=== PATIENT | female | born 1945 | race Caucasian/White ===

== ENCOUNTER 2020-08-16 14:08 | Emergency (ER) | payer MEDICARE, OTHER ==
[2020-08-16] MEDS ORDERED: Ondansetron ODT 4 MG TAB ONE (14:33)
[2020-08-16] MEDS ORDERED: Iopamidol-370 76% 500 ML 1 ML ONE (15:00)
[2020-08-16 16:01] LABS: #Lymphocytes 1.4 thou/uL (1.20-3.40); #Monocytes 0.3 thou/uL (0.11-0.59); #Neutrophils 9.8 thou/uL (1.40-6.50); %Basophils 0.2 % (0.0-1.0); %Eosinophils 0.1 % (0.0-10.0); %Lymphocytes 11.9 % (21.0-51.0); %Monocytes 2.7 % (0.0-10.0); %Neutrophils 85.2 % (42.0-75.0); Mean Corpuscular HGB CONC 32.9 g/dL (32.0-36.0); Mean Corpuscular Hemoglobin 31.7 pg (27.0-31.0); Mean Corpuscular Volume 96.4 fL (78.0-98.0); Mean Platelet Volume 8.8 fL (7.4-10.4); Platelet Count 250 thou/uL (130-400); RBC Distribution Width 14.1 % (11.5-14.5); Red Blood Cell (RBC) Count 4.41 mill/uL (4.20-5.40); White Blood Cell (WBC) Count 11.5 thou/uL (4.8-10.8)
[2020-08-16 16:11] LABS: Bacteria/HPF None Seen HPF (None Seen); Bilirubin Negative (Negative); Blood, Urine Negative (Negative); Clarity Turbid (Clear); Glucose, Urine (Dipstick) Normal (Negative); Ketone, Urine 20 mg/dL (Negative); Leukocyte Negative Leu/uL (Negative); Nitrite Negative (Negative); Protein, Urine (Dipstick) 50 mg/dL (Neg-Trace); RBC/HPF 0-3 HPF (0-3); Squamous Epithelial 0-3 HPF (0-3); Urobilinogen Normal mg/dL (Less than 2); WBC/HPF 0-3 HPF (0-3)
[2020-08-16 16:25] LABS: ALT (SGPT) 25 U/L (8-55); AST (SGOT) 31 U/L (5-34); Albumin 4.1 g/dL (3.4-4.8); Alkaline Phosphatase 118 U/L (40-110); Anion Gap 18 mmol/L (10-20); BUN (Urea Nitrogen) 29 mg/dL (9.8-20.1); Bilirubin, Total 0.4 mg/dL (0.2-1.2); Calc. Creatinine Clearance 0 mL/min (70-130); Carbon Dioxide 33 mmol/L (23-31); Chloride 100 mmol/L (98-107); Globulin 2.8 g/dL (2.4-3.5); Glucose 113 mg/dL (83-110); Lipase 52 U/L (8-78); Potassium 3.4 mmol/L (3.5-5.1); Protein, Total 6.9 g/dL (5.8-8.1); Sodium 148 mmol/L (136-145)
[2020-08-16 16:45] LABS: CKMB 1.4 ng/mL (0-6.6)
[2020-08-16] MEDS ORDERED: Aspirin Chewable 81 MG TAB ONE (18:09)
[2020-08-16 18:17] LABS: Troponin I 0.075 ng/mL (< 0.028)
[2020-08-16 19:23] LABS: Lactic Acid 1.8 mmol/L (0.5-2.2)
== END 2020-08-16 19:12 ==
LOC: ERS 14:08
DX: R10.9 Unspecified abdominal pain (principal); R11.2 Nausea with vomiting, unspecified; Z79.82 Long term (current) use of aspirin; Z79.899 Other long term (current) drug therapy
CPT/HCPCS: 36415; 74177; 80053; 81003; 81015; 82553; 83605; 83690; 84484; 85025; 87086; 93005; 94760; Q0162; Q9967

== ENCOUNTER 2021-11-19 20:21 | Inpatient (IN) | payer OTHER ==
[2021-11-19] MEDS ORDERED: Nitroglycerin 2% Ointment 1 INCH/1 GM Packet ONE (20:56)
[2021-11-19 22:28] LABS: ALT (SGPT) 19 U/L (8-55); AST (SGOT) 48 U/L (5-34); Albumin 3.8 g/dL (3.4-4.8); Alkaline Phosphatase 89 U/L (40-110); Anion Gap 17 mmol/L (10-20); BUN (Urea Nitrogen) 40 mg/dL (9.8-20.1); Bilirubin, Total 0.2 mg/dL (0.2-1.2); Calc. Creatinine Clearance 0 mL/min (70-130); Calcium 11.1 mg/dL (7.8-10.44); Carbon Dioxide 23 mmol/L (23-31); Chloride 107 mmol/L (98-107); Estimated GFR 35; Globulin 2.7 g/dL (2.4-3.5); Glucose 89 mg/dL (83-110); Protein, Total 6.5 g/dL (5.8-8.1); Sodium 142 mmol/L (136-145)
[2021-11-19 22:37] LABS: #Eosinphils 0.2 thou/uL (0.0-0.7); #Lymphocytes 1.5 thou/uL (1.20-3.40); #Monocytes 0.5 thou/uL (0.11-0.59); #Neutrophils 6.1 thou/uL (1.40-6.50); %Basophils 0.4 % (0.0-1.0); %Eosinophils 2.6 % (0.0-10.0); %Lymphocytes 18.4 % (21.0-51.0); %Monocytes 5.5 % (0.0-10.0); %Neutrophils 73.2 % (42.0-75.0); Hemoglobin 13.1 g/dL (12.0-16.0); Mean Corpuscular HGB CONC 33.2 g/dL (32.0-36.0); Mean Corpuscular Hemoglobin 31.9 pg (27.0-31.0); Mean Corpuscular Volume 96.1 fL (78.0-98.0); Mean Platelet Volume 9.2 fL (7.4-10.4); Platelet Count 141 thou/uL (130-400); RBC Distribution Width 12.4 % (11.5-14.5); Red Blood Cell (RBC) Count 4.11 mill/uL (4.20-5.40); White Blood Cell (WBC) Count 8.4 thou/uL (4.8-10.8)
[2021-11-19 23:16] LABS: CKMB 2.8 ng/mL (0-6.6)
[2021-11-19] MEDS ORDERED: Enoxaparin Sodium 80 MG/0.8 ML SYRINGE ONE (23:25)
[2021-11-19] MEDS ORDERED: Aspirin Chewable 81 MG TAB ONE (23:25)
[2021-11-20] MEDS ORDERED: Ondansetron PF 4 MG/2 ML Vial ONE (00:16)
[2021-11-20] MEDS ORDERED: hydrALAZINE 20 MG/ML VIAL ONE (00:26)
[2021-11-20] MEDS ORDERED: Ondansetron PF 4 MG/2 ML Vial IVP PRN (00:37)
[2021-11-20] MEDS ORDERED: Acetaminophen 325 MG TAB PO PRN (00:37)
[2021-11-20] MEDS ORDERED: Dextrose 5% in Water 1,000 ML IV PRN (00:39)
[2021-11-20] MEDS ORDERED: Dextrose 50% Abboject 50 ML SYRINGE SLOW IVP PRN (00:39)
[2021-11-20] MEDS ORDERED: HumaLOG 300 UNITS/3 ML VIAL SC PRN ×2 (00:39)
[2021-11-20] MEDS ORDERED: hydrALAZINE 20 MG/ML VIAL SLOW IVP PRN (00:40)
[2021-11-20] MEDS ORDERED: Sodium Chloride 0.9% 1,000 ML IV SCH ×3 (01:15→14:15)
[2021-11-20] MEDS ORDERED: Nitroglycerin 0.4 MG TAB (25 Tab Bottle) SL PRN ×2 (01:19→14:08)
[2021-11-20 02:50] LABS: Troponin I 1.738 ng/mL (< 0.028)
[2021-11-20] MEDS ORDERED: traMADol HCl 50 MG TAB PO PRN (04:24)
[2021-11-20 04:57] LABS: #Eosinphils 0.2 thou/uL (0.0-0.7); #Lymphocytes 1.4 thou/uL (1.20-3.40); #Monocytes 0.4 thou/uL (0.11-0.59); #Neutrophils 5.9 thou/uL (1.40-6.50); %Basophils 0.2 % (0.0-1.0); %Eosinophils 2.2 % (0.0-10.0); %Lymphocytes 17.5 % (21.0-51.0); %Neutrophils 75.2 % (42.0-75.0); Hemoglobin 12.8 g/dL (12.0-16.0); Mean Corpuscular HGB CONC 32.5 g/dL (32.0-36.0); Mean Corpuscular Hemoglobin 31.2 pg (27.0-31.0); Mean Corpuscular Volume 96.1 fL (78.0-98.0); Mean Platelet Volume 9.8 fL (7.4-10.4); Platelet Count 156 thou/uL (130-400); RBC Distribution Width 12.6 % (11.5-14.5); White Blood Cell (WBC) Count 7.8 thou/uL (4.8-10.8)
[2021-11-20 05:05] LABS: Anion Gap 15 mmol/L (10-20); BUN (Urea Nitrogen) 39 mg/dL (9.8-20.1); Calc. Creatinine Clearance 0 mL/min (70-130); Calcium 10.7 mg/dL (7.8-10.44); Carbon Dioxide 23 mmol/L (23-31); Chloride 109 mmol/L (98-107); Cholesterol 138 mg/dl (< 200 Desired); Estimated GFR 42; Glucose 89 mg/dL (83-110); HDL Cholesterol 46 mg/dL (>60 Neg Risk); LDL Cholesterol, Calculated 71 mg/dL; Potassium 3.8 mmol/L (3.5-5.1); Sodium 143 mmol/L (136-145); Triglycerides 107 mg/dL (Less than 150)
[2021-11-20 05:13] LABS: Troponin I 2.024 ng/mL (< 0.028)
[2021-11-20 05:36] VITALS: BMI 27.3
[2021-11-20 05:39] LABS: Bacteria/HPF None Seen HPF (None Seen); Bilirubin Negative (Negative); Blood, Urine Negative (Negative); Clarity Clear (Clear); Glucose, Urine (Dipstick) Normal (Negative); Ketone, Urine Negative (Negative); Leukocyte 250 Leu/uL (Negative); Nitrite Negative (Negative); Protein, Urine (Dipstick) Negative (Neg-Trace); RBC/HPF 0-3 HPF (0-3); Specific Gravity, Urine 1.012 (1.002-1.036); Squamous Epithelial 0-3 HPF (0-3); Urobilinogen Normal mg/dL (Less than 2)
[2021-11-20 05:40] LABS: Urine Culture Reflex Yes Yes
[2021-11-20] MEDS ORDERED: Iopamidol 370 76% 100 ML VIAL ONE (09:09)
[2021-11-20] MEDS: Gabapentin 300 MG CAP PO SCH ×3 (09:26→21:06)
[2021-11-20] MEDS: Aspirin 81 mg Enteric Coated Tablet PO SCH (09:26)
[2021-11-20] MEDS ORDERED: Communication Order-Pharmacy FS SCH (09:30)
[2021-11-20] MEDS ORDERED: Lidocaine 1% PF 5 ML VIAL ONE (11:39)
[2021-11-20] MEDS ORDERED: Acetaminophen/Codeine 30-300mg Tablet PO PRN ×2 (11:43→14:08)
[2021-11-20] MEDS ORDERED: Polyethylene Glycol 3350 17 GM Packet PO SCH (12:00)
[2021-11-20] MEDS ORDERED: Heparin 10,000 UNITS/ 10 ML VIAL ONE (12:08)
[2021-11-20] MEDS ORDERED: Verapamil 5 MG/2 ML VIAL ONE (12:08)
[2021-11-20] MEDS ORDERED: Nitroglycerin 100MG/250ML BOT 250 ML ONE (12:08)
[2021-11-20 12:20] LABS: Anion Gap 16 mmol/L (10-20); BUN (Urea Nitrogen) 33 mg/dL (9.8-20.1); Calc. Creatinine Clearance 51 mL/min (70-130); Calcium 10.1 mg/dL (7.8-10.44); Carbon Dioxide 18 mmol/L (23-31); Chloride 111 mmol/L (98-107); Estimated GFR 46; Glucose 80 mg/dL (83-110); Potassium 4.3 mmol/L (3.5-5.1); Sodium 141 mmol/L (136-145)
[2021-11-20] MEDS ORDERED: Fentanyl 100 MCG/2 ML VIAL ONE (12:56)
[2021-11-20] MEDS ORDERED: Midazolam HCl 2 mg/2 ml Vial ONE (12:56)
[2021-11-20] MEDS ORDERED: Sodium Chloride 0.9% 200 ML IV PRN (14:08)
[2021-11-21 05:08] LABS: Anion Gap 15 mmol/L (10-20); BUN (Urea Nitrogen) 30 mg/dL (9.8-20.1); Calc. Creatinine Clearance 52 mL/min (70-130); Calcium 9.3 mg/dL (7.8-10.44); Carbon Dioxide 19 mmol/L (23-31); Chloride 113 mmol/L (98-107); Estimated GFR 47; Glucose 115 mg/dL (83-110); Potassium 4.1 mmol/L (3.5-5.1); Sodium 143 mmol/L (136-145)
[2021-11-21] MEDS: Aspirin 81 mg Enteric Coated Tablet PO SCH (09:02)
[2021-11-21] MEDS: Polyethylene Glycol 3350 17 GM Packet PO SCH (09:02)
[2021-11-21] MEDS: Gabapentin 300 MG CAP PO SCH ×3 (09:03→20:21)
[2021-11-21 18:24] LABS: #Eosinphils 0.1 thou/uL (0.0-0.7); #Lymphocytes 1.2 thou/uL (1.20-3.40); #Monocytes 0.3 thou/uL (0.11-0.59); #Neutrophils 4.3 thou/uL (1.40-6.50); %Lymphocytes 19.3 % (21.0-51.0); %Monocytes 5.7 % (0.0-10.0); %Neutrophils 72.9 % (42.0-75.0); Hemoglobin 11.3 g/dL (12.0-16.0); Mean Corpuscular HGB CONC 32.3 g/dL (32.0-36.0); Mean Corpuscular Hemoglobin 30.9 pg (27.0-31.0); Mean Corpuscular Volume 95.7 fL (78.0-98.0); Mean Platelet Volume 8.9 fL (7.4-10.4); Platelet Count 140 thou/uL (130-400); RBC Distribution Width 12.7 % (11.5-14.5); Red Blood Cell (RBC) Count 3.67 mill/uL (4.20-5.40); White Blood Cell (WBC) Count 5.9 thou/uL (4.8-10.8)
[2021-11-21] MEDS: Acetaminophen/Codeine 30-300mg Tablet PO PRN (20:21)
[2021-11-22] MEDS ORDERED: Bisacodyl 5 MG TAB PO PRN (03:25)
[2021-11-22] MEDS ORDERED: Senokot S 8.6-50 MG TAB PO PRN (03:25)
[2021-11-22] MEDS: Acetaminophen/Codeine 30-300mg Tablet PO PRN (04:11)
[2021-11-22 04:32] LABS: #Eosinphils 0.2 thou/uL (0.0-0.7); #Lymphocytes 1.2 thou/uL (1.20-3.40); #Monocytes 0.5 thou/uL (0.11-0.59); #Neutrophils 4.4 thou/uL (1.40-6.50); %Basophils 0.3 % (0.0-1.0); %Eosinophils 3.2 % (0.0-10.0); %Lymphocytes 18.5 % (21.0-51.0); %Monocytes 7.4 % (0.0-10.0); %Neutrophils 70.6 % (42.0-75.0); Hemoglobin 11.9 g/dL (12.0-16.0); Mean Corpuscular HGB CONC 32.9 g/dL (32.0-36.0); Mean Corpuscular Hemoglobin 31.6 pg (27.0-31.0); Mean Platelet Volume 8.8 fL (7.4-10.4); Platelet Count 132 thou/uL (130-400); RBC Distribution Width 12.8 % (11.5-14.5); Red Blood Cell (RBC) Count 3.75 mill/uL (4.20-5.40); White Blood Cell (WBC) Count 6.3 thou/uL (4.8-10.8)
[2021-11-22 04:53] LABS: Anion Gap 14 mmol/L (10-20); BUN (Urea Nitrogen) 28 mg/dL (9.8-20.1); Calc. Creatinine Clearance 57 mL/min (70-130); Calcium 8.9 mg/dL (7.8-10.44); Carbon Dioxide 21 mmol/L (23-31); Chloride 112 mmol/L (98-107); Estimated GFR 53; Glucose 91 mg/dL (83-110); Potassium 4.3 mmol/L (3.5-5.1); Sodium 143 mmol/L (136-145)
[2021-11-22] MEDS ORDERED: Cephalexin 250 MG CAP PO SCH (09:00)
[2021-11-22] MEDS ORDERED: Lisinopril 10 MG TAB PO SCH (09:00)
[2021-11-22] MEDS: Aspirin 81 mg Enteric Coated Tablet PO SCH (09:14)
[2021-11-22] MEDS: Polyethylene Glycol 3350 17 GM Packet PO SCH (09:14)
[2021-11-22] MEDS: Gabapentin 300 MG CAP PO SCH (09:20)
[2021-11-22 11:51] VITALS: BP 130/62; TEMP 98.6
== END 2021-11-22 12:50 | DRG 281 ==
LOC: ERS 20:21 → 2NO 11-20 00:19
PROVIDERS: ADMIT Family Medicine; ATTEND Family Medicine
PROC: 4A023N8 Measurement of Cardiac Sampling and Pressure, Bilateral, Percutaneous Approach (ICD-10-PCS; principal; 2021-11-20)
PROC: B2111ZZ Fluoroscopy of Multiple Coronary Arteries using Low Osmolar Contrast (ICD-10-PCS; 2021-11-20)
PROC: B2161ZZ Fluoroscopy of Right and Left Heart using Low Osmolar Contrast (ICD-10-PCS; 2021-11-20)
DX: I35.0 Nonrheumatic aortic (valve) stenosis (principal); I21.4 Non-ST elevation (NSTEMI) myocardial infarction; N17.9 Acute kidney failure, unspecified; N39.0 Urinary tract infection, site not specified; Z20.822 Contact with and (suspected) exposure to COVID-19; I77.1 Stricture of artery; I10 Essential (primary) hypertension; E78.5 Hyperlipidemia, unspecified; I48.91 Unspecified atrial fibrillation; I73.00 Raynaud's syndrome without gangrene; M81.0 Age-related osteoporosis without current pathological fracture; I16.0 Hypertensive urgency; E83.52 Hypercalcemia; G89.4 Chronic pain syndrome; Z90.49 Acquired absence of other specified parts of digestive tract; Z71.0 Person encountering health services to consult on behalf of another person; Z79.899 Other long term (current) drug therapy; Z79.82 Long term (current) use of aspirin; Z80.7 Family history of other malignant neoplasms of lymphoid, hematopoietic and related tissues; Z82.49 Family history of ischemic heart disease and other diseases of the circulatory system
CPT/HCPCS: 36415; 36416; 71045; 80048; 80053; 80061; 81001; 82553; 83036; 84484; 85025; 87077; 87086; 87186; 93005; 93306; 93456; 94760; 96372; 96374; 96375; 99152; C1751; C1769; C1894; J0360; J1644; J1650; J2250; J2405; J3010; J7050; Q9967; U0003; U0005

== ENCOUNTER 2021-12-25 12:33 | Inpatient (IN) | payer OTHER ==
[2021-12-25 13:40] LABS: Hemoglobin 12.8 g/dL (12.0-16.0); Mean Corpuscular HGB CONC 31.9 g/dL (32.0-36.0); Platelet Count 307 thou/uL (130-400); RBC Distribution Width 14.1 % (11.5-14.5); Red Blood Cell (RBC) Count 4.13 mill/uL (4.20-5.40); White Blood Cell (WBC) Count 23.6 thou/uL (4.8-10.8)
[2021-12-25 13:56] LABS: Band 30 % (5-11); Lymphocytes 5 % (21-51); MDiff Complete? YES; Metamyelocyte 4 % (0-0); Neutrophil 61 % (42-75); Ovalocytes SLIGHT = 2-5 cells (100X) (0-1/hpf); Platelet Morphology Comment Appears Adequate; Polychromasia MODERATE = 3-4 cells (100X) (0-2/hpf)
[2021-12-25 14:14] LABS: ALT (SGPT) 31 U/L (8-55); AST (SGOT) 38 U/L (5-34); Albumin 3.7 g/dL (3.4-4.8); Alkaline Phosphatase 89 U/L (40-110); Anion Gap 20 mmol/L (10-20); BUN (Urea Nitrogen) 36 mg/dL (9.8-20.1); Bilirubin, Total 0.5 mg/dL (0.2-1.2); Calc. Creatinine Clearance 0 mL/min (70-130); Calcium 10.6 mg/dL (7.8-10.44); Carbon Dioxide 17 mmol/L (23-31); Chloride 109 mmol/L (98-107); Estimated GFR 24; Globulin 2.4 g/dL (2.4-3.5); Glucose 110 mg/dL (83-110); Lipase 16 U/L (8-78); Potassium 4.8 mmol/L (3.5-5.1); Protein, Total 6.1 g/dL (5.8-8.1); Sodium 141 mmol/L (136-145)
[2021-12-25 14:27] LABS: CKMB 1.7 ng/mL (0-6.6)
[2021-12-25 15:05] LABS: Bilirubin Negative (Negative); Blood, Urine Trace (Negative); Clarity Turbid (Clear); Glucose, Urine (Dipstick) Normal (Negative); Ketone, Urine Trace mg/dL (Negative); Leukocyte 500 Leu/uL (Negative); Nitrite 1+ (Negative); Protein, Urine (Dipstick) 100 mg/dL (Neg-Trace); Specific Gravity, Urine 1.019 (1.002-1.036); Squamous Epithelial None Seen HPF (0-3); Urobilinogen Normal mg/dL (Less than 2); WBC/HPF Greater than 50 HPF (0-3); pH, Urine 7.5 (5.0-9.0)
[2021-12-25] MEDS ORDERED: Sodium Chloride 0.9% 100 ML ONE (15:10)
[2021-12-25] MEDS ORDERED: Piperacillin/Tazobactam 4.5 GM VIAL ONE (15:11)
[2021-12-25 15:15] LABS: Bacteria/HPF 4+ HPF (None Seen)
[2021-12-25 16:25] LABS: SARS-CoV-2 NAA Rapid Test Not Detected (NotDetected)
[2021-12-25 16:54] LABS: Lactic Acid 3.6 mmol/L (0.5-2.2)
[2021-12-25] MEDS ORDERED: Bupivacaine HCl 0.5%/Epinephrine 1:200,000/PF 30 ml Vial ONE (17:09)
[2021-12-25] MEDS ORDERED: PROPOFOL 200 MG/20 ML VIAL ONE (17:25)
[2021-12-25] MEDS ORDERED: Rocuronium Bromide 10 MG/ML (10ML VIAL) ONE (17:25)
[2021-12-25] MEDS ORDERED: Ondansetron PF 4 MG/2 ML Vial ONE (17:25)
[2021-12-25] MEDS ORDERED: Lidocaine 1% MPF 2 ML VIAL ONE (17:25)
[2021-12-25] MEDS ORDERED: Lidocaine 1% PF 5 ML VIAL ONE (17:31)
[2021-12-25] MEDS ORDERED: fentaNYL Citrate/PF 100 MCG/2 ML SYRINGE ONE (18:00)
[2021-12-25] MEDS ORDERED: Phenylephrine 10 MG/ML VIAL ONE (18:33)
[2021-12-25] MEDS ORDERED: Dextrose 50% Abboject 50 ML SYRINGE SLOW IVP PRN (19:51)
[2021-12-25] MEDS ORDERED: Morphine 4 MG/ML VIAL SLOW IVP PRN ×2 (19:51→20:15)
[2021-12-25] MEDS ORDERED: hydrALAZINE 20 MG/ML VIAL SLOW IVP PRN (19:51)
[2021-12-25] MEDS ORDERED: HumaLOG 300 UNITS/3 ML VIAL SC PRN (19:51)
[2021-12-25] MEDS ORDERED: Dextrose 5% in Water 1,000 ML IV PRN (19:51)
[2021-12-25] MEDS ORDERED: Morphine 2 MG/ML VIAL SLOW IVP PRN (19:51)
[2021-12-25] MEDS ORDERED: TETANUS, DIPHTHERIA TOX,ADULT (TDVAX) 0.5 ML VIAL IM ONE (19:51)
[2021-12-25] MEDS ORDERED: Ventilator Sedation Protocol 1 EACH FS SCH (20:00)
[2021-12-25] MEDS ORDERED: Midazolam HCl 2 mg/2 ml Vial SLOW IVP PRN (20:08)
[2021-12-25] MEDS ORDERED: Fentanyl BOLUS 250 ML IVPB PRN (20:15)
[2021-12-25] MEDS ORDERED: Propofol BOLUS 1,000 MG/100 ML VIAL IV PRN (20:15)
[2021-12-25 20:18] LABS: CO2 Tension 28.8 mmHg (35.0-45.0); Calcium, Ionized (arterial) 1.15 mmol/L (1.12-1.30); Carboxyhemoglobin (COHb) 0.4 gm% (0.0-3.0); Hemoglobin (Hb) 10.7 g/dL (12.0-16.0); O2 Tension (PaO2), arterial 156.5 mmHg (> 70.0); Potassium - ABG Lab 3.89 mmol/L (3.70-5.30); pH, Arterial 7.31 (7.35-7.45)
[2021-12-25 20:23] LABS: Puncture Site ALINE
[2021-12-25] MEDS ORDERED: Fentanyl CADD 100 ML ONE (20:39)
[2021-12-25] MEDS: Propofol 1,000 MG/100 ML VIAL IV PRN (20:44)
[2021-12-25] MEDS: Fentanyl CADD 100 ML IV SCH (20:44)
[2021-12-25] MEDS: Sodium Chloride 0.45% 1,000 ML IV SCH (20:51)
[2021-12-25 21:41] VITALS: BMI 27.5
[2021-12-25] MEDS: Enoxaparin Sodium 30 MG/0.3 ML SYRINGE SC SCH (21:49)
[2021-12-25] MEDS: Piperacillin/Tazobactam 3.375 GM in Sodium Chloride 0.9% 100 ML IVPB SCH (21:49)
[2021-12-25] MEDS: Albumin 25% 25 GM/100 ML BOT IVPB SCH (23:53)
[2021-12-26] MEDS ORDERED: Phenylephrine 0.25% Nasal Spray 15 ML BOT ONE (01:05)
[2021-12-26] MEDS: Phenylephrine 40 MG/NS 250 ML 40 MG in Premix Bag 1 BAG IVPB SCH ×3 (01:12→12:19)
[2021-12-26] MEDS: Sodium Chloride 0.45% 1,000 ML IV SCH ×2 (02:17→05:56)
[2021-12-26 04:29] LABS: INR-International Normal Ratio 1.5
[2021-12-26 04:30] LABS: PTT 51.3 sec (22.9-36.1)
[2021-12-26 04:50] LABS: ALT (SGPT) 84 U/L (8-55); AST (SGOT) 87 U/L (5-34); Alkaline Phosphatase 66 U/L (40-110); Anion Gap 12 mmol/L (10-20); BUN (Urea Nitrogen) 39 mg/dL (9.8-20.1); Bilirubin, Total 0.5 mg/dL (0.2-1.2); Calc. Creatinine Clearance 27 mL/min (70-130); Carbon Dioxide 17 mmol/L (23-31); Chloride 114 mmol/L (98-107); Estimated GFR 25; Globulin 1.8 g/dL (2.4-3.5); Glucose 113 mg/dL (83-110); Protein, Total 4.8 g/dL (5.8-8.1); Sodium 139 mmol/L (136-145)
[2021-12-26 05:02] LABS: Band 2 % (5-11); Hemoglobin 8.8 g/dL (12.0-16.0); Lymphocytes 4 % (21-51); MDiff Complete? YES; Mean Corpuscular HGB CONC 32.5 g/dL (32.0-36.0); Mean Corpuscular Hemoglobin 31.5 pg (27.0-31.0); Mean Corpuscular Volume 97.1 fL (78.0-98.0); Mean Platelet Volume 9.1 fL (7.4-10.4); Metamyelocyte 1 % (0-0); Monocytes 2 % (0-10); Neutrophil 90 % (42-75); Platelet Count 261 thou/uL (130-400); Platelet Morphology Comment Appears Adequate; RBC Distribution Width 14.1 % (11.5-14.5); RBC Morphology Normal; Red Blood Cell (RBC) Count 2.79 mill/uL (4.20-5.40); White Blood Cell (WBC) Count 23.1 thou/uL (4.8-10.8)
[2021-12-26] MEDS: Albumin 25% 25 GM/100 ML BOT IVPB SCH ×4 (05:37→23:50)
[2021-12-26] MEDS: Piperacillin/Tazobactam 3.375 GM in Sodium Chloride 0.9% 100 ML IVPB SCH ×3 (05:37→21:22)
[2021-12-26 07:10] LABS: Actual Bicarbonate (HCO3a) 16.4 mEq/L (22-28); Base Excess (BEa) -7.5 mEq/L (-2.0 to +3.0); CO2 Tension 27.3 mmHg (35.0-45.0); Calcium, Ionized (arterial) 1.08 mmol/L (1.12-1.30); Carboxyhemoglobin (COHb) 0.3 gm% (0.0-3.0); Hemoglobin (Hb) 8.4 g/dL (12.0-16.0); O2 Tension (PaO2), arterial 177.2 mmHg (> 70.0); Potassium - ABG Lab 3.73 mmol/L (3.70-5.30)
[2021-12-26 07:20] LABS: ALV-art Gradient 73.875 mmHg (0-20); Puncture Site Arterial Line
[2021-12-26] MEDS: Sodium Bicarbonate 70 MEQ in Sodium Chloride 0.45% 1,000 ML IV SCH ×2 (07:48→16:55)
[2021-12-26] MEDS: Pantoprazole 40 MG VIAL IVP SCH (08:31)
[2021-12-26] MEDS: Propofol 1,000 MG/100 ML VIAL IV PRN ×2 (09:23→17:32)
[2021-12-26 16:31] LABS: #Lymphocytes 0.7 thou/uL (1.20-3.40); #Monocytes 0.3 thou/uL (0.11-0.59); #Neutrophils 9.5 thou/uL (1.40-6.50); %Basophils 0.1 % (0.0-1.0); %Eosinophils 0.5 % (0.0-10.0); %Lymphocytes 6.5 % (21.0-51.0); %Monocytes 2.6 % (0.0-10.0); %Neutrophils 90.4 % (42.0-75.0); Hemoglobin 7.2 g/dL (12.0-16.0); Mean Corpuscular HGB CONC 34.1 g/dL (32.0-36.0); Mean Corpuscular Hemoglobin 32.8 pg (27.0-31.0); Mean Corpuscular Volume 96.2 fL (78.0-98.0); Mean Platelet Volume 8.7 fL (7.4-10.4); Platelet Count 161 thou/uL (130-400); RBC Distribution Width 14.6 % (11.5-14.5); Red Blood Cell (RBC) Count 2.21 mill/uL (4.20-5.40); White Blood Cell (WBC) Count 10.5 thou/uL (4.8-10.8)
[2021-12-26] MEDS ORDERED: Fentanyl CADD 100 ML ONE (17:30)
[2021-12-26] MEDS: Fentanyl CADD 100 ML IV SCH (17:32)
[2021-12-26] MEDS: Enoxaparin Sodium 30 MG/0.3 ML SYRINGE SC SCH (21:23)
[2021-12-27 00:29] LABS: #Eosinphils 0.1 thou/uL (0.0-0.7); #Monocytes 0.3 thou/uL (0.11-0.59); #Neutrophils 10.8 thou/uL (1.40-6.50); %Basophils 0.1 % (0.0-1.0); %Eosinophils 0.6 % (0.0-10.0); %Lymphocytes 7.9 % (21.0-51.0); %Monocytes 2.4 % (0.0-10.0); Hemoglobin 8.7 g/dL (12.0-16.0); Mean Corpuscular HGB CONC 32.8 g/dL (32.0-36.0); Mean Corpuscular Hemoglobin 30.9 pg (27.0-31.0); Mean Corpuscular Volume 94.3 fL (78.0-98.0); Mean Platelet Volume 9.3 fL (7.4-10.4); Platelet Count 153 thou/uL (130-400); RBC Distribution Width 14.3 % (11.5-14.5); Red Blood Cell (RBC) Count 2.81 mill/uL (4.20-5.40); White Blood Cell (WBC) Count 12.2 thou/uL (4.8-10.8)
[2021-12-27] MEDS: Phenylephrine 40 MG/NS 250 ML 40 MG in Premix Bag 1 BAG IVPB SCH ×2 (03:28→10:45)
[2021-12-27] MEDS: Propofol 1,000 MG/100 ML VIAL IV PRN ×3 (03:28→18:06)
[2021-12-27] MEDS: Sodium Bicarbonate 70 MEQ in Sodium Chloride 0.45% 1,000 ML IV SCH (03:45)
[2021-12-27 03:50] LABS: #Eosinphils 0.1 thou/uL (0.0-0.7); #Monocytes 0.3 thou/uL (0.11-0.59); #Neutrophils 10.6 thou/uL (1.40-6.50); %Eosinophils 0.8 % (0.0-10.0); %Lymphocytes 7.9 % (21.0-51.0); %Monocytes 2.5 % (0.0-10.0); %Neutrophils 88.8 % (42.0-75.0); Mean Corpuscular HGB CONC 33.7 g/dL (32.0-36.0); Mean Corpuscular Hemoglobin 31.4 pg (27.0-31.0); Mean Corpuscular Volume 93.2 fL (78.0-98.0); Platelet Count 151 thou/uL (130-400); RBC Distribution Width 14.5 % (11.5-14.5); Red Blood Cell (RBC) Count 2.86 mill/uL (4.20-5.40)
[2021-12-27 04:10] LABS: ALT (SGPT) 86 U/L (8-55); AST (SGOT) 66 U/L (5-34); Albumin 3.5 g/dL (3.4-4.8); Alkaline Phosphatase 55 U/L (40-110); Anion Gap 12 mmol/L (10-20); BUN (Urea Nitrogen) 28 mg/dL (9.8-20.1); Bilirubin, Total 0.8 mg/dL (0.2-1.2); Calc. Creatinine Clearance 40 mL/min (70-130); Carbon Dioxide 19 mmol/L (23-31); Chloride 113 mmol/L (98-107); Estimated GFR 41; Globulin 1.5 g/dL (2.4-3.5); Glucose 78 mg/dL (83-110); Sodium 141 mmol/L (136-145)
[2021-12-27 04:35] LABS: Potassium 2.8 mmol/L (3.5-5.1)
[2021-12-27] MEDS ORDERED: Electrolyte Replacement Protocol FS PRN (05:00)
[2021-12-27] MEDS: Potassium Chloride 20 MEQ in Premix Bag 1 BAG IVPB SCH ×4 (05:05→13:55)
[2021-12-27] MEDS: Piperacillin/Tazobactam 3.375 GM in Sodium Chloride 0.9% 100 ML IVPB SCH ×3 (05:05→21:17)
[2021-12-27] MEDS: D5 1/2 NS w/40 mEq KCL 1,000 ML IV SCH ×2 (06:26→23:41)
[2021-12-27 06:39] LABS: Actual Bicarbonate (HCO3a) 19.3 mEq/L (22-28); Base Excess (BEa) -3.7 mEq/L (-2.0 to +3.0); CO2 Tension 27.4 mmHg (35.0-45.0); Calcium, Ionized (arterial) 1.06 mmol/L (1.12-1.30); Carboxyhemoglobin (COHb) 0.3 gm% (0.0-3.0); Hemoglobin (Hb) 9.1 g/dL (12.0-16.0); O2 Tension (PaO2), arterial 178.9 mmHg (> 70.0); Potassium - ABG Lab 3.31 mmol/L (3.70-5.30); pH, Arterial 7.47 (7.35-7.45)
[2021-12-27 07:50] LABS: Puncture Site Arterial Line
[2021-12-27] MEDS: Pantoprazole 40 MG VIAL IVP SCH (08:09)
[2021-12-27] MEDS ORDERED: Fentanyl CADD 100 ML ONE (11:49)
[2021-12-27] MEDS: Fentanyl CADD 100 ML IV SCH (11:52)
[2021-12-27 14:29] LABS: Anion Gap 15 mmol/L (10-20); BUN (Urea Nitrogen) 21 mg/dL (9.8-20.1); Calc. Creatinine Clearance 55 mL/min (70-130); Calcium 7.9 mg/dL (7.8-10.44); Carbon Dioxide 16 mmol/L (23-31); Chloride 112 mmol/L (98-107); Estimated GFR 51; Glucose 92 mg/dL (83-110); Potassium 3.6 mmol/L (3.5-5.1); Sodium 139 mmol/L (136-145)
[2021-12-27] MEDS: Sodium Bicarbonate 70 MEQ in Dextrose 5% in Water 1,000 ML IV SCH (15:45)
[2021-12-27 18:30] LABS: Potassium 3.8 mmol/L (3.5-5.1)
[2021-12-27] MEDS: Enoxaparin Sodium 40 MG/0.4 ML SYRINGE SC SCH (20:37)
[2021-12-28] MEDS: Sodium Bicarbonate 70 MEQ in Dextrose 5% in Water 1,000 ML IV SCH ×2 (02:09→13:12)
[2021-12-28 04:10] LABS: #Eosinphils 0.2 thou/uL (0.0-0.7); #Lymphocytes 0.9 thou/uL (1.20-3.40); #Monocytes 0.2 thou/uL (0.11-0.59); #Neutrophils 5.9 thou/uL (1.40-6.50); %Basophils 0.4 % (0.0-1.0); %Eosinophils 2.7 % (0.0-10.0); %Lymphocytes 12.4 % (21.0-51.0); %Neutrophils 81.4 % (42.0-75.0); Hemoglobin 9.2 g/dL (12.0-16.0); Mean Corpuscular HGB CONC 32.5 g/dL (32.0-36.0); Mean Corpuscular Volume 95.2 fL (78.0-98.0); Mean Platelet Volume 9.3 fL (7.4-10.4); Platelet Count 152 thou/uL (130-400); RBC Distribution Width 14.4 % (11.5-14.5); Red Blood Cell (RBC) Count 2.97 mill/uL (4.20-5.40); White Blood Cell (WBC) Count 7.3 thou/uL (4.8-10.8)
[2021-12-28 04:30] LABS: ALT (SGPT) 80 U/L (8-55); AST (SGOT) 35 U/L (5-34); Albumin 2.8 g/dL (3.4-4.8); Alkaline Phosphatase 67 U/L (40-110); Anion Gap 10 mmol/L (10-20); BUN (Urea Nitrogen) 15 mg/dL (9.8-20.1); Bilirubin, Total 0.8 mg/dL (0.2-1.2); Calc. Creatinine Clearance 65 mL/min (70-130); Carbon Dioxide 22 mmol/L (23-31); Chloride 111 mmol/L (98-107); Estimated GFR 62; Globulin 1.7 g/dL (2.4-3.5); Glucose 139 mg/dL (83-110); Potassium 3.6 mmol/L (3.5-5.1); Protein, Total 4.5 g/dL (5.8-8.1); Sodium 139 mmol/L (136-145)
[2021-12-28] MEDS ORDERED: Piperacillin/Tazobactam 3.375 GM VIAL ONE (06:14)
[2021-12-28] MEDS: Piperacillin/Tazobactam 3.375 GM in Sodium Chloride 0.9% 100 ML IVPB SCH ×3 (06:18→20:58)
[2021-12-28 06:50] LABS: Actual Bicarbonate (HCO3a) 25.5 mEq/L (22-28); Base Excess (BEa) 1.5 mEq/L (-2.0 to +3.0); CO2 Tension 37.4 mmHg (35.0-45.0); Carboxyhemoglobin (COHb) 0.4 gm% (0.0-3.0); Hemoglobin (Hb) 9.9 g/dL (12.0-16.0); O2 Tension (PaO2), arterial 112.1 mmHg (> 70.0); Potassium - ABG Lab 3.71 mmol/L (3.70-5.30); pH, Arterial 7.45 (7.35-7.45)
[2021-12-28] MEDS: Fentanyl CADD 100 ML IV SCH (07:09)
[2021-12-28 07:11] LABS: Puncture Site Arterial Line
[2021-12-28] MEDS: Pantoprazole 40 MG VIAL IVP SCH (09:04)
[2021-12-28] MEDS: D5 1/2 NS w/40 mEq KCL 1,000 ML IV SCH (15:13)
[2021-12-28] MEDS: Phenylephrine 40 MG/NS 250 ML 40 MG in Premix Bag 1 BAG IVPB SCH (16:24)
[2021-12-28] MEDS: Enoxaparin Sodium 40 MG/0.4 ML SYRINGE SC SCH (20:58)
[2021-12-29] MEDS: Sodium Bicarbonate 70 MEQ in Dextrose 5% in Water 1,000 ML IV SCH ×2 (00:17→11:19)
[2021-12-29] MEDS ORDERED: Fentanyl CADD 100 ML ONE (03:28)
[2021-12-29] MEDS: Fentanyl CADD 100 ML IV SCH (03:31)
[2021-12-29 04:08] LABS: #Eosinphils 0.2 thou/uL (0.0-0.7); #Lymphocytes 0.9 thou/uL (1.20-3.40); #Monocytes 0.3 thou/uL (0.11-0.59); #Neutrophils 5.1 thou/uL (1.40-6.50); %Basophils 0.5 % (0.0-1.0); %Eosinophils 2.7 % (0.0-10.0); %Lymphocytes 13.6 % (21.0-51.0); %Monocytes 4.1 % (0.0-10.0); %Neutrophils 79.1 % (42.0-75.0); Hemoglobin 10.1 g/dL (12.0-16.0); Mean Corpuscular HGB CONC 31.9 g/dL (32.0-36.0); Mean Corpuscular Hemoglobin 30.5 pg (27.0-31.0); Mean Corpuscular Volume 95.3 fL (78.0-98.0); Mean Platelet Volume 9.2 fL (7.4-10.4); Platelet Count 161 thou/uL (130-400); RBC Distribution Width 14.4 % (11.5-14.5); Red Blood Cell (RBC) Count 3.32 mill/uL (4.20-5.40); White Blood Cell (WBC) Count 6.5 thou/uL (4.8-10.8)
[2021-12-29 04:35] LABS: ALT (SGPT) 53 U/L (8-55); AST (SGOT) 19 U/L (5-34); Albumin 2.7 g/dL (3.4-4.8); Alkaline Phosphatase 97 U/L (40-110); Anion Gap 11 mmol/L (10-20); BUN (Urea Nitrogen) 9 mg/dL (9.8-20.1); Calc. Creatinine Clearance 83 mL/min (70-130); Calcium 8.3 mg/dL (7.8-10.44); Carbon Dioxide 22 mmol/L (23-31); Chloride 108 mmol/L (98-107); Estimated GFR 76; Globulin 1.9 g/dL (2.4-3.5); Glucose 132 mg/dL (83-110); Protein, Total 4.6 g/dL (5.8-8.1); Sodium 137 mmol/L (136-145)
[2021-12-29] MEDS: Piperacillin/Tazobactam 3.375 GM in Sodium Chloride 0.9% 100 ML IVPB SCH ×3 (05:19→21:06)
[2021-12-29] MEDS: D5 1/2 NS w/40 mEq KCL 1,000 ML IV SCH ×2 (08:25→21:18)
[2021-12-29] MEDS: Pantoprazole 40 MG VIAL IVP SCH (08:25)
[2021-12-29] MEDS ORDERED: Sodium Chloride 0.9% 1,000 ML IV SCH (15:15)
[2021-12-29] MEDS: Enoxaparin Sodium 40 MG/0.4 ML SYRINGE SC SCH (21:06)
[2021-12-29] MEDS: Sodium Chloride 0.45% 1,000 ML IV SCH (21:07)
[2021-12-29] MEDS ORDERED: Phenylephrine 40 MG in Sodium Chloride 0.9% 250 ML 250 ML IVPB SCH (22:00)
[2021-12-29 22:51] LABS: Magnesium 1.4 mg/dL (1.6-2.6); Potassium 4.1 mmol/L (3.5-5.1)
[2021-12-29] MEDS ORDERED: Magnesium Sulfate In Water 4 GM in Premix Bag 1 BAG IVPB SCH ×2 (23:15)
[2021-12-30] MEDS ORDERED: Fentanyl CADD 100 ML ONE (03:07)
[2021-12-30] MEDS: Fentanyl CADD 100 ML IV SCH (03:12)
[2021-12-30 04:44] LABS: #Eosinphils 0.1 thou/uL (0.0-0.7); #Lymphocytes 0.8 thou/uL (1.20-3.40); #Monocytes 0.3 thou/uL (0.11-0.59); #Neutrophils 7.7 thou/uL (1.40-6.50); %Basophils 0.2 % (0.0-1.0); %Eosinophils 1.5 % (0.0-10.0); %Lymphocytes 8.7 % (21.0-51.0); %Monocytes 3.7 % (0.0-10.0); %Neutrophils 85.9 % (42.0-75.0); Mean Corpuscular HGB CONC 32.9 g/dL (32.0-36.0); Mean Corpuscular Hemoglobin 31.2 pg (27.0-31.0); Mean Corpuscular Volume 94.9 fL (78.0-98.0); Mean Platelet Volume 9.6 fL (7.4-10.4); Platelet Count 185 thou/uL (130-400); RBC Distribution Width 14.2 % (11.5-14.5); Red Blood Cell (RBC) Count 3.22 mill/uL (4.20-5.40); White Blood Cell (WBC) Count 8.9 thou/uL (4.8-10.8)
[2021-12-30 05:04] LABS: ALT (SGPT) 37 U/L (8-55); AST (SGOT) 21 U/L (5-34); Albumin 2.5 g/dL (3.4-4.8); Alkaline Phosphatase 98 U/L (40-110); Anion Gap 10 mmol/L (10-20); BUN (Urea Nitrogen) 7 mg/dL (9.8-20.1); Calc. Creatinine Clearance 79 mL/min (70-130); Calcium 8.4 mg/dL (7.8-10.44); Carbon Dioxide 21 mmol/L (23-31); Chloride 106 mmol/L (98-107); Estimated GFR 75; Glucose 120 mg/dL (83-110); Magnesium 2.4 mg/dL (1.6-2.6); Potassium 4.2 mmol/L (3.5-5.1); Protein, Total 4.5 g/dL (5.8-8.1); Sodium 133 mmol/L (136-145)
[2021-12-30] MEDS: Piperacillin/Tazobactam 3.375 GM in Sodium Chloride 0.9% 100 ML IVPB SCH ×2 (05:11→09:27)
[2021-12-30] MEDS: Pantoprazole 40 MG VIAL IVP SCH (09:27)
[2021-12-30] MEDS: Sodium Chloride 0.45% 1,000 ML IV SCH (09:27)
[2021-12-30] MEDS: Enoxaparin Sodium 40 MG/0.4 ML SYRINGE SC SCH (09:28)
[2021-12-30] MEDS: D5 1/2 NS w/40 mEq KCL 1,000 ML IV SCH (09:28)
[2021-12-30] MEDS: Morphine 10 MG/ML VIAL SLOW IVP PRN ×4 (10:01→13:23)
[2022-01-01] MEDS: Morphine 10 MG/ML VIAL SLOW IVP PRN ×2 (10:24→21:23)
[2022-01-02 08:28] VITALS: BP 179/76; TEMP 98.2
[2022-01-02] MEDS: Morphine 10 MG/ML VIAL SLOW IVP PRN ×2 (09:22→11:15)
== END 2022-01-02 12:03 | disposition hospice, inpatient (51) | DRG 853 ==
LOC: ERS 12:33 → CCU 16:38 → SDC 16:41 → CCU 19:37 → T4-A 12-30 15:18
PROVIDERS: ADMIT Specialist; ATTEND Specialist
PROC: 0DTF0ZZ Resection of Right Large Intestine, Open Approach (ICD-10-PCS; principal; 2021-12-25)
PROC: 5A1955Z Respiratory Ventilation, Greater than 96 Consecutive Hours (ICD-10-PCS; 2021-12-25)
PROC: 3E033XZ Introduction of Vasopressor into Peripheral Vein, Percutaneous Approach (ICD-10-PCS; 2021-12-25)
PROC: 3E0334Z Introduction of Serum, Toxoid and Vaccine into Peripheral Vein, Percutaneous Approach (ICD-10-PCS; 2021-12-25)
PROC: 30233N1 Transfusion of Nonautologous Red Blood Cells into Peripheral Vein, Percutaneous Approach (ICD-10-PCS; 2021-12-26)
DX: A41.9 Sepsis, unspecified organism (principal); I63.89 Other cerebral infarction; J96.00 Acute respiratory failure, unspecified whether with hypoxia or hypercapnia; K65.9 Peritonitis, unspecified; K55.049 Acute infarction of large intestine, extent unspecified; K76.6 Portal hypertension; N17.9 Acute kidney failure, unspecified; G93.40 Encephalopathy, unspecified; Z66 Do not resuscitate; Z20.822 Contact with and (suspected) exposure to COVID-19; G89.4 Chronic pain syndrome; I48.91 Unspecified atrial fibrillation; I35.0 Nonrheumatic aortic (valve) stenosis; E11.22 Type 2 diabetes mellitus with diabetic chronic kidney disease; K63.89 Other specified diseases of intestine; K31.89 Other diseases of stomach and duodenum; I12.9 Hypertensive chronic kidney disease with stage 1 through stage 4 chronic kidney disease, or unspecified chronic kidney disease; Z79.82 Long term (current) use of aspirin; Z79.899 Other long term (current) drug therapy; Z90.710 Acquired absence of both cervix and uterus; Z90.49 Acquired absence of other specified parts of digestive tract; Z98.890 Other specified postprocedural states
CPT/HCPCS: 36415; 36416; 36430; 70450; 71045; 74176; 80053; 81003; 81015; 82553; 82805; 83605; 83690; 83735; 84484; 85025; 85610; 85730; 86850; 86900; 86901; 88307; 90714; 93005; 94002; 94003; 96374; 97139; C1751; C9113; J1642; J1650; J2250; J2270; J2370; J2405; J2543; J2704; J3010; J3475; J3480; J3490; J7050; J7070; J7999; P9016; P9047; U0002